=== PATIENT | female | born 1950 | race Caucasian/White ===

== ENCOUNTER 2019-05-02 00:22 | Emergency (ER) | payer MEDICARE, BC, OTHER ==
[~2019-05-02] VITALS: Ht 154.9 cm; Wt 78.6 kg
[~2019-05-02 00:22] MED LIST: CIPR-249 PO; COUM2.5T17 PO; EXTR500C4 PO; FISH5CAP; FLAG500T PO; MIRA3350 PO; MOBI4TAB PO; SING10TA32 PO; TARTCAP PO; TRAM50TA2 PO; TYLE325T5 PO; VITA-110 PO; VITA200016 PO; VITATAB11 PO
[2019-05-02 01:40] LABS: BASO % 0.2 % (0.0-1.0); EOS # 0.1 10^3/uL (0.0-0.5); EOS % 0.7 % (0.0-3.0); HEMATOCRIT 41.1 % (36.0-47.0); HEMOGLOBIN 12.9 g/dl (12.0-15.5); LYMPH # 1.5 10^3/uL (1.5-5.0); LYMPH % 15.7 % (24.0-44.0); MEAN CORPUSCULAR HEMOGLOBIN 26.1 pg (27.0-33.0); MEAN CORPUSCULAR HGB CONC 31.4 g/dl (32.0-36.5); MEAN CORPUSCULAR VOLUME 83.2 fl (80.0-96.0); MONO # 0.6 10^3/uL (0.0-0.8); MONO % 6.4 % (0.0-5.0); NEUTROPHILS # 7.5 10^3/uL (1.5-8.5); NEUTROPHILS % 76.8 % (36.0-66.0); PLATELET COUNT, AUTOMATED 274 10^3/uL (150-450); RED BLOOD COUNT 4.94 10^6/uL (4.00-5.40); WHITE BLOOD COUNT 9.7 10^3/uL (4.0-10.0)
[2019-05-02] MEDS ORDERED: ROSU5TAB5 PO (01:41)
[2019-05-02] MEDS ORDERED: COLA100C5 PO (01:41)
[2019-05-02] MEDS ORDERED: OMEP-218 PO (01:41)
[2019-05-02] MEDS ORDERED: BYST5TAB2 PO (01:41)
[2019-05-02] MEDS ORDERED: PAZE1DRO OU (01:41)
[2019-05-02] MEDS ORDERED: ONDANSETRON 4MG/2ML VIAL (J2405) IV ONE (01:45)
[2019-05-02 02:03] LABS: ALBUMIN 3.9 GM/DL (3.2-5.2); ALT/SGPT 30 U/L (12-78); BILIRUBIN,DIRECT 0.2 MG/DL (0.0-0.2); BILIRUBIN,TOTAL 0.6 MG/DL (0.2-1.0); BLOOD UREA NITROGEN 11 MG/DL (7-18); CALCIUM LEVEL 8.9 MG/DL (8.8-10.2); CARBON DIOXIDE LEVEL 23 MEQ/L (21-32); CHLORIDE LEVEL 107 MEQ/L (98-107); CREATININE FOR GFR 0.75 MG/DL (0.55-1.30); GLOMERULAR FILTRATION RATE > 60.0 (>45); GLUCOSE, FASTING 124 MG/DL (70-100); LIPASE 156 U/L (73-393); POTASSIUM SERUM 4.2 MEQ/L (3.5-5.1); SODIUM LEVEL 139 MEQ/L (136-145); TOTAL PROTEIN 6.9 GM/DL (6.4-8.2)
[2019-05-02] MEDS ORDERED: ISOVUE-370 76% 100ML VIAL (Q9967) As Ordered ONE (02:15)
--- NOTE | 2019-05-02 02:46 | REPVR ---
PROCEDURE INFORMATION: Exam: CT Abdomen And Pelvis With Contrast Exam date and time: 05/02/2019 2:11 AM Age: 68 years old Clinical indication: Abdominal pain; Localized; Left lower quadrant (llq); Additional info: Llq abd pain TECHNIQUE: Imaging protocol: Computed tomography of the abdomen and pelvis with intravenous contrast. Radiation optimization: All CT scans at this facility use at least one of these dose optimization techniques: automated exposure control; mA and/or kV adjustment per patient size (includes targeted exams where dose is matched to clinical indication); or iterative reconstruction. Contrast material: ISO; Contrast volume: 100 ml; Contrast route: AC; COMPARISON: CT ABD PELVIS WITH CONTRAST 09/20/2014 10:38 AM FINDINGS: Lungs: No suspicious mass or airspace process in the visualized lung bases. Liver: Liver appears normal with no focal abnormality. Gallbladder and bile ducts: Gallbladder is present and shows no evidence of gallstone. Pancreas: Pancreas appears normal. No focal mass or peripancreatic inflammation. Spleen: Spleen appears homogeneous without focal mass. Adrenals: Adrenal glands are normal in appearance. Kidneys and ureters: Kidneys appear normal, with no stone, solid mass or hydronephrosis. Stomach and bowel: No evidence of small bowel obstruction. Circumferential mural edema involving the descending and sigmoid colon, with pericolonic stranding suggests inflammatory or infectious colitis. Multiple diverticula are also present within the colon without evidence of focal diverticulitis. Appendix: Normal caliber appendix is identified, with no adjacent inflammation. Intraperitoneal space: No pneumoperitoneum. No abnormal pelvic mass. Vasculature: No aortic aneurysm. Lymph nodes: No enlarged lymph nodes. Bladder: Urinary bladder appears normal. Bones/joints: Right hip arthroplasty hardware is present. IMPRESSION: 1. Findings are strongly suggestive of inflammatory or infectious colitis involving the descending and sigmoid colon without obstruction or perforation. 2. Colonic diverticula without focal diverticulitis. The wall thickening in the colon involves a long segment, not compatible with focal diverticulitis. Electronically signed by: Ruy Black On 05/02/2019 02:46:38 AM
[2019-05-02] MEDS ORDERED: metroNIDAZOLE (FLAGYL) 500 MG TAB PO ONE (03:45)
[2019-05-02] MEDS ORDERED: CIPROFLOXACIN 500 MG TAB PO ONE (03:45)
[2019-05-02] MEDS ORDERED: CIPR-249 PO (03:48)
[2019-05-02] MEDS ORDERED: FLAG500T PO (03:48)
[2019-05-02] MEDS ORDERED: OXYCODONE/APAP 5MG/325MG(BULK FOR ED) 1 TABLET PO ONE (04:00)
[2019-05-02 04:03] VITALS: BP 136/88
== END 2019-05-02 04:04 | disposition home or self-care (01) ==
LOC: M ED 00:22
DX: K52.9 Noninfective gastroenteritis and colitis, unspecified (principal); K57.32 Diverticulitis of large intestine without perforation or abscess without bleeding; Z87.891 Personal history of nicotine dependence; Z79.899 Other long term (current) drug therapy; Z88.0 Allergy status to penicillin
CPT/HCPCS: 74177; 80048; 80076; 83690; 85025; 86850; 86900; 86901; 99284; Q9967